=== PATIENT | female | born 1995 | race Caucasian/White ===

== ENCOUNTER 2017-09-21 01:36 | Emergency (ER) | payer OTHER ==
[~2017-09-21] VITALS: Ht 160 cm; Wt 60.3 kg
--- NOTE | ~2017-09-21 | EKG ---
[address] [place] [address] ELECTROCARDIOGRAM REPORT Name: NORMA ORDAZ Room #: DEP BERNICE Kahn#: [id number] Admission: 09/21/17 Attend Phys: Discharge: 09/21/17 Date of : 89 Report #: [id number] THIS REPORT FOR: //name// [facility] ED Test Date: 2017-09-21 Test Time: 01:52:23 Pat Name: NORMA ORDAZ Department: Room: Gender: F Career Manager: YAHIR : 1995 Requested By: Daniel Hwang Order Number: [id number] MD: Alsitair Ogden Measurements Intervals [place] Rate: 98 P: 56 [place]: 136 QRS: 40 QRSD: 83 T: 29 QT: 344 QTc: 440 Interpretive Statements Sinus rhythm Normal tracing No previous ECG available for comparison Electronically Signed On 09-21-2017 9:00:15 RELEASE SPECIALIST by Alistair Ogden [email or web address] <ELECTRONICALLY SIGNED> By: Alistair Ogden MD, [facility] 09/21/17 0900 0152 [id number] Alistair Ogden MD, FACC /EPI
[2017-09-21 01:51] LABS: HEMATOCRIT 42.4 % (37.0-47.0); HEMOGLOBIN 14.5 gm/dL (12.0-15.0); MCHC 34.1 g/dL (28.0-37.0); RBC 4.82 mil/uL (4.20-5.00); WBC 11.2 thou/uL (4.0-11.0)
[2017-09-21 01:55] LABS: CALCIUM 9.3 mg/dL (8.5-10.1); CREATININE 0.8 mg/dL (0.6-1.0); POTASSIUM 3.5 mmol/L (3.5-5.1)
[2017-09-21 02:00] LABS: TOTAL BILIRUBIN 0.4 mg/dL (<0.1-1.0)
== END 2017-09-21 02:44 | disposition home or self-care (01) ==
LOC: ER 01:36
PROVIDERS: Emergency Medicine
DX: G40.909 Epilepsy, unspecified, not intractable, without status epilepticus (principal); Z88.8 Allergy status to other drugs, medicaments and biological substances

== ENCOUNTER 2020-02-03 21:56 | Emergency (ER) | payer OTHER ==
[~2020-02-03] VITALS: Ht 157.5 cm; Wt 59.0 kg
[2020-02-03] MEDS ORDERED: PNV 29-1 TABLE1 EACH PO (22:07)
[2020-02-03 22:41] LABS: BASOPHILS 0.6 % (0.0-2.0); EOSINOPHILS 0.8 % (0.0-3.0); HEMATOCRIT 39.5 % (37.0-47.0); HEMOGLOBIN 13.8 gm/dL (12.0-15.0); LYMPHOCYTES 35.3 % (24.0-44.0); MCH 30.2 pg (26.0-34.0); MCV 86.2 fL (80.0-100.0); PLATELET COUNT 266 thou/uL (150-400); POLYS 55.3 % (36.0-66.0); RBC 4.58 mil/uL (4.20-5.00); RDW 13.1 % (10.5-14.5); WBC 9.1 thou/uL (4.0-11.0)
[2020-02-03 22:53] LABS: URINE BILIRUBIN NEGATIVE (Negative); URINE BLOOD NEGATIVE (Negative); URINE CLARITY CLEAR; URINE COLOR YELLOW; URINE GLUCOSE-RANDOM* 1+ (Negative); URINE KETONES NEGATIVE (Negative); URINE NITRITE-REFLEX NEGATIVE (Negative); URINE PROTEIN (DIPSTICK) NEGATIVE (Negative); URINE SPECIFIC GRAVITY <= 1.005 (1.005-1.035); URINE UROBILINOGEN 0.2 E.U./dl (0.2-1.0)
[2020-02-03 22:56] LABS: URINE LEUKOCYTES-REFLEX 1+ (Negative)
[2020-02-03 23:02] LABS: CREATININE 0.5 mg/dL (0.6-1.0); POTASSIUM 3.1 mmol/L (3.5-5.1)
[2020-02-03 23:07] LABS: ALBUMIN 3.3 g/dL (3.4-5.0); TOTAL BILIRUBIN 0.3 mg/dL (0.2-1.0); TOTAL PROTEIN 7.4 g/dL (6.4-8.2)
[2020-02-03 23:13] LABS: CASTS None Seen /LPF (None Seen); CRYSTALS None Seen /LPF (None Seen); SQUAMOUS 0-3 Few /LPF (0-3); URINE RBC None Seen /HPF (0-2); URINE WBC-REFLEX 6-15 Few /HPF (0-5)
[2020-02-03 23:14] LABS: BACTERIA-REFLEX 1-9 Few /HPF (None Seen)
[2020-02-04 00:13] VITALS: BP 126/78
== END 2020-02-04 00:14 | disposition home or self-care (01) ==
LOC: ER 21:56
PROVIDERS: Emergency Medicine
DX: O20.0 Threatened abortion (principal); O99.341 Other mental disorders complicating pregnancy, first trimester; G82.20 Paraplegia, unspecified; Z3A.09 9 weeks gestation of pregnancy; Z99.3 Dependence on wheelchair; Z79.899 Other long term (current) drug therapy; Z88.8 Allergy status to other drugs, medicaments and biological substances